=== PATIENT | male | born 1940 | race Caucasian/White ===

== ENCOUNTER 2018-09-05 10:40 | Day surgery (SDC) | payer MEDICARE, OTHER ==
[2018-09-05] VITALS (11 sets, daily range): BP systolic 142–179; BP diastolic 62–78
[~2018-09-05] VITALS: Ht 175.3 cm; Wt 104.3 kg
[~2018-09-05 10:40] MED LIST: MITOMYCIN IS ONE; ceFAZolin sod 1 GM in NS 55 ML IVPB ONE
--- NOTE | 2018-09-05 11:18 | Pre-Procedure Note/Attestation ---
Pre-Procedure Note/Attestation Complete Prior to Procedure Planned Procedure: not applicable Procedure Narrative: TURBT with Mitomicine RPG Indications for Procedure Pre-Operative Diagnosis: bladder tumor Attestation I attest that I discussed the nature of the procedure; its benefits; risks and complications; and alternatives (and the risks and benefits of such alternatives ), prior to the procedure, with the patient (or the patient's legal ocean import representative). I attest that, if there was a reasonable possibility of needing a blood transfusion, the patient (or the patient's legal ocean import representative) was given the [facility] standardized written summary, pursuant to the Greyson Wil Blood Safety Act ([place] Health and Safety Code # 1645, as amended). I attest that I re-evaluated the patient just prior to the surgery and that there has been no change in the patient's H&P, except as documented below: Andrey Galindo MD September 05, 2018 11:18
[2018-09-05] MEDS ORDERED: EDARBI40 MG ORAL (12:06)
[2018-09-05] MEDS ORDERED: JANUMET XR 50-1 EAC1 ORAL (12:06)
[2018-09-05] MEDS ORDERED: GLIPIZIDE XL2.5 MG ORAL (12:07)
[2018-09-05] MEDS ORDERED: NISOLDIPINE17 MG ORAL (12:07)
[2018-09-05] MEDS ORDERED: CARVEDILOL25 MG ORAL (12:08)
[2018-09-05] MEDS ORDERED: HYDRALAZINE HCL25 M1 ORAL (12:08)
[2018-09-05] MEDS ORDERED: FUROSEMIDE20 M1 ORAL (12:09)
[2018-09-05] MEDS ORDERED: CRESTOR10 M2 ORAL (12:10)
[2018-09-05] MEDS ORDERED: Iothalamate Meglumine 60% 30ML INJ ONE (12:11)
[2018-09-05] MEDS ORDERED: AMIODARONE HCL400 M1 ORAL (12:11)
[2018-09-05] MEDS ORDERED: ASPIR 8181 MG ORAL (12:11)
[2018-09-05] MEDS ORDERED: XARELTO10 MG ORAL (12:12)
[2018-09-05] MEDS ORDERED: LINZESS290 MCG PO (12:16)
[2018-09-05] MEDS ORDERED: Zemuron 50mg/5ml Inj IV ONE (12:56)
[2018-09-05] MEDS ORDERED: NS Irrig 1000ml ONE (13:00)
[2018-09-05] MEDS ORDERED: LR 1000ml ONE (13:00)
[2018-09-05] MEDS ORDERED: Sterile Water Irrig 1000ml IRRIG ONE (13:00)
[2018-09-05] MEDS ORDERED: Propofol 200mg/20ml IV ONE (13:00)
[2018-09-05] MEDS ORDERED: NS Irrig 2000ml IRRIG ONE (13:00)
[2018-09-05] MEDS ORDERED: fentaNYL 100 mcg/2 mL IV ONE (13:06)
[2018-09-05] MEDS ORDERED: Lidocaine 1% MPF 10mg/ml 5ml ONE (13:06)
[2018-09-05] MEDS ORDERED: Midazolam 2mg/2ml Inj ONE (13:06)
[2018-09-05] MEDS ORDERED: Etomidate 40mg/20ml Inj IV ONE (13:09)
--- NOTE | 2018-09-05 13:26 | Brief Operative Note ---
Immediate Post Operative Note Operative Note Pre-op Diagnosis: bladder tumor Procedure: TURBT RPG Post-op Diagnosis: same Post-op Diagnosis: same as pre-op Surgeon: Cecil Galindo Anesthesia: general Specimen: yes Complications: none Condition: stable Fluids: 500 Estimated Blood Loss: minimal Implant(s) used?: No Andrey Galindo MD September 05, 2018 13:26
[2018-09-05] MEDS ORDERED: HYDROmorphone 1mg/ml Carpuject SUBQ PRN (13:30)
[2018-09-05] MEDS ORDERED: Tylenol #3 tab (300mg/30mg) ORAL PRN (13:30)
[2018-09-05] MEDS ORDERED: HYDROcodone/Acetamin 5/325 tab ORAL PRN (13:30)
--- NOTE | 2018-09-05 13:43 | Anethesia Preoperative Eval ---
Anesthesia Pre-op PMH/ROS General Date of Evaluation: September 05, 2018 Anesthesiologist: Ed ASA Score: ASA 4 Mallampati Score Class I : Soft palate, uvula, fauces, pillars visible Class II: Soft palate, uvula, fauces visible Class III: Soft palate, base of uvula visible Class IV: Only hard plate visible Mallampati Classification: Class III Surgeon: Mateo Diagnosis: Bladder tumor Surgical Procedure: TURBT with pyelogram and mytomycin Anesthesia History: none Family History: no anesthesia problems Allergies: Coded Allergies: METHOTREXATE (Verified Allergy, Unknown, Rash, 09/04/18) NIFEDIPINE (Verified Allergy, Unknown, CONSTIPATION, LEG EDEMA, 09/04/18) SIMVASTATIN (Verified Allergy, Unknown, MUSCLE CRAMPS, 09/04/18) AMLODIPINE (Verified Adverse Reaction, Unknown, leg edema, 09/04/18) CARVEDILOL (Verified Adverse Reaction, Unknown, dizziness, 09/04/18) CLONIDINE (Verified Adverse Reaction, Unknown, fatigue, 09/04/18) DILTIAZEM (Verified Adverse Reaction, Unknown, LEG EDEMA, 09/04/18) Medications: see eMAR Patient NPO?: Yes NPO Date: September 04, 2018 NPO Time: 22:00 Past Medical History Cardiovascular: Reports: HTN, CAD - s/p 2 stents 2016, arrhythmia - afib s/p pacemaker placement then switched to AICD, other - severe left carotid stenosis with baseline intermittent dizziness, PAD; Denies: PR, valve dz Pulmonary: Reports: COPD, RANDY - severe-has CPAP but does not use it; Denies: asthma, other Gastrointestinal/Genitourinary: Reports: GERD, CRI, other - h/o prostate cancer s/p radical prostatectomy, bladder cancer; Denies: ESRD Neurologic/Psychiatric: Denies: dementia, CVA, depression/anxiety, TIA, other Endocrine: Reports: DM; Denies: hypothyroidism, steroids, other HEENT: Denies: cataract (L), cataract (R), glaucoma, MENTASTA (L), MENTASTA (R), other Hematology/Immune: Denies: anemia, DVT, bleeding disorder, other Musculoskeletal/Integumentary: Reports: RA; Denies: OA, DJD, DDD, edema, other Other: obesity PSxH Narrative: radical prostatectomy, right knee sx, T&A, left 3rd finger sx Anesthesia Pre-op Phys. Exam Physician Exam Last Vital Signs Date Time Temp Pulse Resp B/P (MAP) Pulse Ox O2 Delivery O2 Flow Rate FiO2 09/05/18 12:03 Room Air 09/05/18 11:58 98.0 65 18 144/68 99 Constitutional: NAD Cardiovascular: RRR Respiratory: other - distant breath sounds Airway Exam Mallampati Score: Class III MO: full ROM: limited Teeth: missing, intact Dentures: upper Anesthesia Pre-op A/P Labs see chart Studies Pre-op Studies: EKG - paced Risk Assessment & Plan Assessment: ASA IV Plan: GA Status Change Before Surgery: No Pre-Antibiotics Drug: Ancef 2g Given Within 1 Hr of Incision: Yes My Ye MD September 05, 2018 13:43
[2018-09-05] MEDS ORDERED: Glycopyrrolate 0.2mg/ml 1ml Vial ONE (14:03)
[2018-09-05] MEDS ORDERED: Neostigmine 1mg/ml 10ml Inj ONE (14:03)
--- NOTE | 2018-09-05 14:30 | Immediate Post-Op Evaluation ---
Immediate Post-Op Evalulation Immediate Post-Op Evalulation Procedure: TURBT, mitomycin instillation Date of Evaluation: September 05, 2018 Time of Evaluation: 14:33 IV Fluids: 700 Blood Products: 0 Estimated Blood Loss: 25 Urinary Output: 0 Blood Pressure Systolic: 162 Blood Pressure Diastolic: 62 Pulse Rate: 71 Respiratory Rate: 16 O2 Sat by Pulse Oximetry: 99 Temperature (Fahrenheit): 97.1 Pain Score (1-10): 0 Nausea: No Vomiting: No Complications 0 Patient Status: awake, reacts, patent, none Hydration Status: adequate Drug: Ancef 1g Given Within 1 Hr of Incision: Yes My Ye MD September 05, 2018 14:30
--- NOTE | 2018-09-05 14:31 | 48 Hour Post Anesthesia Eval ---
Post Anesthesia Evaluation Procedure: TURBT, mitomycin instillation Date of Evaluation: September 05, 2018 Airway: patent Nausea: No Vomiting: No Pain Intensity: 0 Hydration Status: adequate Cardiopulmonary Status: at baseline Mental Status/LOC: patient returned to baseline Post-Anesthesia Complications: 0 Follow-up care needed: ready to discharge My Ye MD September 05, 2018 14:31
[2018-09-05] MEDS ORDERED: D5 1/2NS 1,000 ML IV SCH (17:00)
--- NOTE | 2018-09-12 02:30 | Operative Note - Dictated ---
DATE OF OPERATION: 09/05/2018 PREOPERATIVE DIAGNOSES: 1. Recurrent bladder cancer. 2. History of prostate cancer. POSTOPERATIVE DIAGNOSES: 1. Recurrent bladder cancer. 2. History of prostate cancer. OPERATION: Bilateral retrograde pyelogram, cystoscopy, and transurethral resection of the large bladder tumor. OPERATED BY: Andrey Galindo M.D. ANESTHESIA: General. FINDINGS: Multiple tumors in the left lateral wall and the neck of the bladder. INDICATIONS FOR SURGERY: The patient had bladder cancer and he has lost for follow up. Findings came back with hematuria. Cystoscopy showed recurrent bladder cancer. Treatment options were explained to him in great length including all potential complications. He signed a consent. PROCEDURE IN DETAIL: He was brought into the operating room, placed in lithotomy position, and prepped and draped in standard fashion. Under general anesthesia, cystoscope was introduced and a retrograde pyelogram was performed showing normal ureters. After the resectoscope was introduced, the larger bladder tumors in the left lateral wall close to the ureteral orifice was resected and removed for pathologic examination. Fulguration . The patient had no bleeding. A 20-Persian Mcclure catheter was placed and left indwelling. was injected through the catheter . The patient tolerated the procedure well. Andrey Galindo M.D. DR: ANNA JOB#: [id number] CC:
== END 2018-09-05 16:55 | disposition home or self-care (01) ==
LOC: SUR 10:40
DX: C67.2 Malignant neoplasm of lateral wall of bladder (principal); Z95.0 Presence of cardiac pacemaker; I10 Essential (primary) hypertension; F17.200 Nicotine dependence, unspecified, uncomplicated; E78.5 Hyperlipidemia, unspecified; I25.10 Atherosclerotic heart disease of native coronary artery without angina pectoris; I11.9 Hypertensive heart disease without heart failure; Z79.899 Other long term (current) drug therapy; I25.2 Old myocardial infarction; I13.10 Hypertensive heart and chronic kidney disease without heart failure, with stage 1 through stage 4 chronic kidney disease, or unspecified chronic kidney disease; E11.22 Type 2 diabetes mellitus with diabetic chronic kidney disease; N18.9 Chronic kidney disease, unspecified; E11.40 Type 2 diabetes mellitus with diabetic neuropathy, unspecified; K21.9 Gastro-esophageal reflux disease without esophagitis; Z85.46 Personal history of malignant neoplasm of prostate; M06.9 Rheumatoid arthritis, unspecified; G47.33 Obstructive sleep apnea (adult) (pediatric); M17.0 Bilateral primary osteoarthritis of knee; M50.30 Other cervical disc degeneration, unspecified cervical region; M51.36 Other intervertebral disc degeneration, lumbar region; J44.9 Chronic obstructive pulmonary disease, unspecified; Z88.8 Allergy status to other drugs, medicaments and biological substances; Z90.79 Acquired absence of other genital organ(s)
CPT/HCPCS: 52234; 82962; C1769; J0690; J2250; J2704; J2710; J3010; J9280; 94003; 94150